=== PATIENT | female | born 1990 | race Caucasian/White ===

== ENCOUNTER 2022-07-19 10:52 | Emergency (ER) | payer BC, SELFPAY ==
[2022-07-19 11:35] VITALS: BP 133/88; PULSE 92; RESP 18; TEMP 36.9; O2SAT 100
--- NOTE | 2022-07-19 12:24 | ED.URI ---
HPI - URI/Sore Throat General Chief Complaint: Upper Respiratory Infection Stated Complaint: Cough Time Seen by Provider: 07/19/22 12:24 Source: patient Mode of arrival: ambulatory Limitations: no limitations History of Present Illness HPI Narrative: 32-year-old female presents with complaint of cough for approximately 3 weeks. Denies shortness of breath. reports some chest tightness and pain when coughing. No history of asthma. Afebrile. States that she has posterior neck pain due to coughing. States [id number] cough medications are not helping. All systems reviewed and negative except as noted above. Related Data Allergies Allergy/AdvReac Type Severity Reaction Status Date / Time No Known Allergies Allergy Verified 07/19/22 11:42 Review of Systems Review of Systems: CONSTITUTIONAL: Denies fever, chills, or sweats. EYES: Denies visual changes, redness, or discharge. ENT: Denies rhinorrhea, congestion, sore throat, or otalgia. CARDIOVASCULAR: Denies chest pain, palpitations, or edema. RESPIRATORY: Reports cough. Denies dyspnea. GASTROINTESTINAL: Denies abdominal pain, nausea, vomiting, or diarrhea. GENITOURINARY: Denies dysuria or hematuria. SKIN: Denies rash or itching. MUSCULOSKELETAL: Denies back pain, joint pain, or myalgia. reports posterior neck pain. NEUROLOGIC: Denies headache, numbness, or weakness. PSYCHIATRIC: Denies anxiety or depression. All other systems reviewed are negative, except as documented in HPI. PMFSH Comments At time of signature, agree with nursing past medical, surgical, social and family history. There is no relevant family history pertinent to the presenting complaint. Exam Narrative: GENERAL: This is a well-nourished, well-developed patient, in no apparent distress. HEAD: normocephalic, atraumatic. EYES: PERRL. Sclera clear/white. Vision is grossly intact. EARS: External ears normal, auditory canals clear and without drainage, TMs normal without perforation. Hearing grossly intact. NOSE: External nose normal with no obvious nasal discharge, nares without redness, no rhinorrhea. THROAT: Mucous membranes moist, posterior pharynx clear. NECK: Neck supple, without lymphadenopathy, masses or thyromegaly. Posterior neck tenderness at trapezius muscles. Full range of motion. CARDIOVASCULAR: Regular rate and rhythm without murmurs, gallops, or rubs. RESPIRATORY: Clear to auscultation. Breath sounds equal bilaterally. No wheezes, rales, or rhonchi. SKIN: warm, Dry, intact with no suspicious lesions or rash, good texture and turgor. NEURO: awake, alert, and oriented to person, place and time. There were no obvious focal neurologic abnormalities. EXTREMITIES: No joint tenderness, effusion, or edema noted. Course Course Level of Care: Express Care Visit Vital Signs Vital signs: Vital Signs Temperature 36.9 C 07/19/22 11:35 Pulse Rate 92 07/19/22 11:35 Respiratory Rate 18 07/19/22 11:35 Blood Pressure 133/88 07/19/22 11:35 Pulse Oximetry 100 07/19/22 11:35 Oxygen Delivery Room Air 07/19/22 11:35 Temperature 36.9 C 07/19/22 11:35 Pulse Rate 92 07/19/22 11:35 Respiratory Rate 18 07/19/22 11:35 Blood Pressure 133/88 07/19/22 11:35 Pulse Oximetry 100 07/19/22 11:35 Oxygen Delivery Room Air 07/19/22 11:35 Reviewed MDM - URI/Sore Throat MDM Narrative Medical decision making narrative: Patient is aware of diagnosis, understands and agrees to treatment plan. Anticipatory guidance given. Patient agrees to follow-up as directed and is aware of reasons to seek care at the emergency department. Portions of this record may have been created with voice recognition software Discharge Plan Discharge Clinical Impression: Acute bronchitis, Cervical muscle strain Patient Disposition: Home, Self-Care Condition: Stable Instructions: Cervical Strain (ED), Acute Bronchitis (ED) Additional Instructions: Take medications
== END 2022-07-19 12:42 | disposition home or self-care (01) ==
PROVIDERS: Emergency Provider Nurse Practitioner Family; PCP Family Medicine
DX: J20.9 Acute bronchitis, unspecified (principal); S16.1XXA Strain of muscle, fascia and tendon at neck level, initial encounter; X50.9XXA Other and unspecified overexertion or strenuous movements or postures, initial encounter
CPT/HCPCS: 99213; G0463

== ENCOUNTER 2022-08-12 15:50 | Emergency (ER) | payer BC, SELFPAY ==
--- NOTE | ~2022-08-12 | XR_ITS ---
XR chest 2V DATE: 08/12/2022 16:25 INDICATION: Cough since June 2022. Right upper chest wall pain TECHNIQUE: PA and lateral views COMPARISON: None FINDINGS: Normal heart size. No hilar or mediastinal enlargement. No pulmonary infiltrate or consolid ation, pleural effusion or pulmonary vascular congestion or pneumothorax. IMPRESSION: No active cardiopulmonary disease Reviewed, dictated and finalized at location [facility]. [employer]
[2022-08-12 15:58] VITALS: BP 133/86; PULSE 95; RESP 16; TEMP 36.6; O2SAT 100
--- NOTE | 2022-08-12 16:18 | ED.URI ---
HPI - URI/Sore Throat General Chief Complaint: Upper Respiratory Infection Stated Complaint: Cough Time Seen by Provider: 08/12/22 16:10 Source: patient Mode of arrival: ambulatory Limitations: no limitations History of Present Illness HPI Narrative: is a 32-year-old female patient presenting to clinic today with complaints of a cough since June. She reports that she was originally sick in June and was given treatment for bronchitis. States she improved however she became ill again with a viral infection. She was around people who had influenza A. States that she does not have any fever or chills however she does have a cough with some right upper chest pain with a cough. Cough is productive in the morning with some yellow phlegm MD elicited complaint: sore throat and nasal congestion Related Data Allergies Allergy/AdvReac Type Severity Reaction Status Date / Time No Known Allergies Allergy Verified 08/12/22 15:58 Review of Systems Review of Systems: Pertinent positives per HPI. Patient denies any fever, chills, rash, headache, visual changes, dizziness, chest pain, palpitations, nausea, vomiting, diarrhea, constipation, abdominal pain, or any urinary issues. PMFSH Comments At the time of my signature, I reviewed and agree with the nursing past medical, surgical, social, and family history. There is no relevant family history pertinent to the patient complaint. Exam Narrative: General: Well-developed, well nourished, in no apparent distress Head: Normocephalic, atraumatic Eyes: Pupils equally round and reactive to light bilaterally, EOM intact, sclera and conjunctive clear, no discharge, lids normal Ears: TMs intact and clear, ear canals clear, no drainage, grossly hearing normal. Nose: Nares patent, no discharge, no inflammation, no sinus tenderness. Mouth: Oral pharynx without lesions or masses, good dentition, MMM. Neck: Supple, trachea midline, no enlargement of anterior or posterior cervical nodes, no thyroid masses or goiter palpable. Cardio: Regular rate and rhythm, s1 and s2 normal, no murmur appreciated. Resp: Clear to auscultation bilaterally, no rhonchi, rales, wheezing or rubs Course Course Emergency Course: Portions of this record may have been created with voice recognition software. Level of Care: Express Care Visit Vital Signs Vital signs: Vital Signs Temperature 36.6 C 08/12/22 15:58 Pulse Rate 95 08/12/22 15:58 Respiratory Rate 16 08/12/22 15:58 Blood Pressure 133/86 08/12/22 15:58 Pulse Oximetry 100 08/12/22 15:58 Oxygen Delivery Room Air 08/12/22 15:58 Temperature 36.6 C 08/12/22 15:58 Pulse Rate 95 08/12/22 15:58 Respiratory Rate 16 08/12/22 15:58 Blood Pressure 133/86 08/12/22 15:58 Pulse Oximetry 100 08/12/22 15:58 Oxygen Delivery Room Air 08/12/22 15:58 Vital signs reviewed MDM - URI/Sore Throat MDM Narrative Medical decision making narrative: At the time of visit patient is resting comfortably on the exam table. Chest x-ray was performed and was negative for any sign of pneumonia. I suspect the patient has postviral cough with chest wall pain. I will send in prescription for prednisone. Supportive measures were discussed with the patient she voiced understanding of discharge instructions and agrees to treatment plan Differential Diagnosis Differential diagnosis: Likely upper respiratory infection, otitis media, sinusitis, viral infection, bronchitis, influenza, pharyngitis and other ( Costochondritis, pneumonia, pleurisy) Discharge Plan Discharge Clinical Impression: Acute costochondritis, Post-viral cough syndrome Patient Disposition: Home, Self-Care Condition: Stable Instructions: Antibiotic Form, Costochondritis (ED), Acute Cough (ED) Additional Instructions: Chest x-ray was negative for any sign of pneumonia Take prescription medications only as prescribed- prednisone Increase fluids and
== END 2022-08-12 16:42 | disposition home or self-care (01) ==
PROVIDERS: Emergency Provider Nurse Practitioner Family; PCP Family Medicine
DX: M94.0 Chondrocostal junction syndrome [Tietze] (principal); R05.9 Cough, unspecified
CPT/HCPCS: 71046; 99213; G0463

== ENCOUNTER 2023-11-12 12:12 | Emergency (ER) | payer BC, SELFPAY ==
--- NOTE | ~2023-11-12 | XR_ITS ---
EXAMINATION: XR chest 2V DATE: 11/12/2023 12:24 INDICATION: Cough. Right rib pain. TECHNIQUE: Frontal and lateral views of the chest were obtained. COMPARISON: None. FINDINGS: There is no pneumonia, pleural effusion, or pneumothorax. The heart size is normal. There i s mild chronic anterior wedging of a midthoracic vertebral body. IMPRESSION: 1. No acute cardiopulmonary disease. Reviewed, dictated and finalized at location A.
[2023-11-12 12:13] VITALS: BP 140/89; PULSE 91; RESP 18; TEMP 36.4; O2SAT 100
--- NOTE | 2023-11-12 13:38 | ED.URI ---
HPI - URI/Sore Throat General Chief Complaint: Upper Respiratory Infection Stated Complaint: cough for three weeks causing rib pain Time Seen by Provider: 11/12/23 13:37 Source: patient Mode of arrival: ambulatory Limitations: no limitations History of Present Illness HPI Narrative: is a 33-year-old female patient presenting to the ER today with complaints of nonproductive cough x3 weeks causing some right-sided rib pain. She reports she was seen 2 weeks ago and given a steroid and states that that is did not help at that time. She believes she got a Medrol Dosepak at that time. Denies any fever, chills but does feel short of breath at times. Denies any URI symptoms. Related Data Allergies Allergy/AdvReac Type Severity Reaction Status Date / Time No Known Allergies Allergy Verified 08/12/22 15:58 Review of Systems Review of Systems: Pertinent positives per HPI. Patient denies any fever, chills, rash, headache, visual changes, dizziness,chest pain, palpitations, nausea, vomiting, diarrhea, constipation, abdominal pain, or any urinary issues. PMFSH Comments At the time of my signature, I reviewed and agree with the nursing past medical, surgical, social, and family history. There is no relevant family history pertinent to the patient complaint. Exam Narrative: General: Well-developed, well nourished, in no apparent distress Head: Normocephalic, atraumatic Eyes: Pupils equally round and reactive to light bilaterally, EOM intact, sclera and conjunctive clear, no discharge, lids normal Ears: TMs intact and clear, ear canals clear, no drainage, grossly hearing normal. Nose: Nares patent, no discharge, no inflammation, no sinus tenderness. Mouth: Oral pharynx without lesions or masses, good dentition, MMM. Neck: Supple, trachea midline, no enlargement of anterior or posterior cervical nodes, no thyroid masses or goiter palpable. Cardio: Regular rate and rhythm, s1 and s2 normal, no murmur appreciated. Resp: Slightly diminished in the bases otherwise clear, no rhonchi, rales, wheezing or rubs Course Course Emergency Course: Portions of this record may have been created with voice recognition software. Vital Signs Vital signs: Vital Signs Temperature 36.4 C 11/12/23 12:13 Pulse Rate 91 11/12/23 12:13 Respiratory Rate 18 11/12/23 12:13 Blood Pressure 140/89 11/12/23 12:13 Pulse Oximetry 100 11/12/23 12:13 Oxygen Delivery Room Air 11/12/23 12:13 Temperature 36.4 C 11/12/23 12:13 Pulse Rate 91 11/12/23 12:13 Respiratory Rate 18 11/12/23 12:13 Blood Pressure 140/89 11/12/23 12:13 Pulse Oximetry 100 11/12/23 12:13 Oxygen Delivery Room Air 11/12/23 13:31 Vital signs reviewed MDM - URI/Sore Throat MDM Narrative Medical decision making narrative: At the time of visit patient is resting comfortably on the exam table. Patient appears to be nontoxic. Diagnostics: Chest x-rays negative for any acute cardiopulmonary process. Plan: I suspect patient has viral bronchitis. Will send in prescription for albuterol inhaler, prednisone, and Tessalon Perles. Supportive measures were discussed with the patient and they voiced understanding discharge instructions and agrees to treatment plan. Return precautions reviewed Differential Diagnosis Differential diagnosis: Likely upper respiratory infection, otitis media, sinusitis, viral infection, bronchitis, influenza, pharyngitis and other (COVID) Imaging Data Radiologist's impression: ITS Impressions Chest X-Ray 11/12/23 13:38 IMPRESSION: 1. No acute cardiopulmonary disease. Discharge Plan Discharge Clinical Impression: Bronchitis Patient Disposition: Home, Self-Care Condition: Stable Instructions: Antibiotic Form, Acute Bronchitis (ED) Additional Instructions: Take prescription medications only as prescribed-albuterol inhaler, prednisone, and Tessalon Perles Increase fluid
== END 2023-11-12 14:15 | disposition home or self-care (01) ==
LOC: ANHED 14:09
PROVIDERS: Emergency Provider Nurse Practitioner Family
DX: J40 Bronchitis, not specified as acute or chronic (principal)
CPT/HCPCS: 71046; 99283

== ENCOUNTER 2024-06-19 05:56 | Emergency (ER) | payer BC, SELFPAY ==
[2024-06-19] VITALS (20 sets, daily range): BP systolic 124–149; BP diastolic 86–105; PULSE 76–106; RESP 12–23; TEMP 36.4–36.6; O2SAT 96–100
--- NOTE | ~2024-06-19 | XR_ITS ---
Portable chest x-ray Comparison: 11/12/2023 Clinical History: Chest pain Findings: Lungs are clear, without focal consolidation or pleural effusion. Cardiomediastinal silho uette is stable. Bones and soft tissues are unremarkable. Impression: Normal chest. Reviewed, dictated and finalized at [facility]. 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
--- NOTE | 2024-06-19 06:07 | ECG_ITS ---
Test Date: 2024-06-19 06:09:48 Measurements Intervals [place] Rate: 100 P: 35 OH: 134 QRS: 44 QRSD: 85 T: 31 QT: 331 QTc: 427 Interpretive Statements SINUS TACHYCARDIA NONSPECIFIC ST-T WAVE ABNORMALITY- ANT/INF LEADS BORDERLINE ECG No previous ECG available for comparison Electronically Signed On 06-19-2024 06:53:16 [employer]OVIE OPERATOR by Alexis Santos D.O.
[2024-06-19] MEDS: ASPIRIN 81 MG CHEWABLE TABLET 324 MG PO (06:14)
[2024-06-19 06:23] LABS: Basophils Absolute Auto 0.1 K/mm3 (0.0-0.1); Basophils Percent Auto 0.8 % (0.2-1.2); Eosinophils Absolute Auto 0.3 K/mm3 (0-0.3); Eosinophils Percent Auto 4.5 % (0-4.4); Hematocrit 44.5 % (37.0-47.0); Hemoglobin 14.6 g/dL (12.0-15.0); Immature Granulocyte Absolute 0.02 K/mm3 (0.00-0.031); Immature Granulocyte Percent A 0.3 % (0-0.5); Lymphocytes Absolute Auto 1.83 K/mm3 (0.9-3.2); Lymphocytes Percent Auto 28.4 % (18.3-44.2); Mean Corpuscular HGB Conc 32.8 g/dl (32-36); Mean Corpuscular Hemoglobin 27.5 pg (26-34); Monocytes Absolute Auto 0.4 K/mm3 (0.1-0.6); Monocytes Percent Auto 5.6 % (2.6-8.5); Neutrophils Absolute Auto 3.9 K/mm3 (1.3-6.7); Neutrophils Percent Auto 60.4 % (45.5-73.1); Platelet Count Result 314 k/mm3 (150-375); Red Cell Distribution Width 12.9 % (11.5-14.5); White Blood Count 6.5 K/mm3 (4.5-10.0)
[2024-06-19 06:29] LABS: INR 0.9; Prothrombin Time 13.1 Seconds (11.1-14.7)
[2024-06-19 06:30] LABS: Partial Thromboplastin Time 24.1 Seconds (22.3-36.8)
[2024-06-19 06:31] LABS: Alanine Aminotransferase 18 U/L (6-35); Albumin Level 4.5 g/dL (3.5-5.1); Alkaline Phosphatase 84 U/L (38-126); Anion Gap 8 mmol/L (4-12); Aspartate Amino Transferase 26 U/L (14-36); Bilirubin,Total 0.4 mg/dL (0.2-1.3); Blood Urea Nitrogen 11 mg/dL (7-17); Calcium 8.8 mg/dL (8.4-10.2); Carbon Dioxide 29 mmol/L (22-30); Chloride 100 mmol/L (98-107); Estimated CRCL calculation 102 ml/min; Estimated Glomerular Filt Rate > 60; Glucose 155 mg/dL (65-110); Lipase 40 U/L (23-300); Potassium 3.6 mmol/L (3.4-5.0); Sodium 137 mmol/L (137-145)
[2024-06-19 06:41] LABS: Troponin I < 0.012 ng/mL (0.000-0.034)
--- NOTE | 2024-06-19 07:18 | ED.GENADULT ---
HPI - General Adult General Chief complaint: Chest Pain Stated complaint: chest pain Time Seen by Provider: 06/19/24 06:52 History of Present Illness HPI narrative: 33-year-old female presenting to the emergency department for evaluation for left upper quadrant pain. Patient reports she did have a minor cough and cold symptoms over the last few days and then yesterday had some brief left upper quadrant pain that was the momentary and then today had or persistent lower rib left upper quadrant pain is worsened with taking a deep breath. Patient denies any prior history of PE or DVT. Patient is not currently any form of control. Patient has no recent surgeries no falls or injuries. Related Data Allergies Allergy/AdvReac Type Severity Reaction Status Date / Time No Known Allergies Allergy Verified 08/12/22 15:58 Review of Systems Review of Systems: All systems reviewed & are unremarkable except as noted in HPI and below Exam Narrative: APPEARANCE: Well appearing, no pain, no distress, well-nourished. HEAD: normocephalic, atraumatic. EYES: PERRLA/EOMI, conjunctivae clear. NOSE: Normal no drainage EARS:TMS clear with good light reflex. THROAT: Pharynx clear, no exudate. NECK: Supple. No adenopathy, no masses. RESPIRATORY: Airway patent, respirations nonlabored. Clear to auscultation bilaterally, no rales, rhonchi, wheezing. CARDIOVASCULAR: Regular rate and rhythm without murmurs rubs or gallops. ABDOMINAL: Soft, nontender, nondistended, normal bowel sounds MUSCULOSKELETAL: Moves all extremities. Strength/ROM intact, No edema, No calf tenderness. NEURO: Alert. Cranial nerves II through XII intact. Grossly intact SKIN: Warm, dry. Normal Color Course Vital Signs Vital signs: Vital Signs Pulse Rate 106 H 06/19/24 06:03 Respiratory Rate 16 06/19/24 06:03 Pulse Oximetry 96 06/19/24 06:03 Temperature 97.6 F 06/19/24 10:34 Pulse Rate 89 06/19/24 10:34 Respiratory Rate 16 06/19/24 10:34 Blood Pressure 144/93 H 06/19/24 10:34 Pulse Oximetry 100 06/19/24 10:34 Oxygen Delivery Room Air 06/19/24 06:16 Medical Decision Making [facility] Narrative Medical decision making narrative: 33-year-old female presented to the emergency department for evaluation for left-sided chest pain is worsened with deep inspiration. Patient is afebrile with no leukocytosis and hemoglobin of 14.6. Patient's INR is 0.9 and patient does not have an elevated D-dimer. Patient has no acute abnormalities on her CMP and patient had negative serial troponins. Chest x-ray shows no acute cardiopulmonary abnormality and serial EKG showed no evidence of acute STEMI. Patient does report having and upper respiratory infection a few days ago. Patient's symptoms are consistent with pleurisy. Low concern for pulmonary embolism or ACS. Patient was updated on the results of the workup patient was encouraged of close follow-up with her primary care physician for additional outpatient testing. Patient was also advised on medications for pain control. All questions concerns were addressed patient was well-appearing at time of discharge. Differential Diagnosis Differential Diagnosis: Pneumonia, pneumothorax, pulmonary embolism, COVID, RSV, influenza a, pleurisy Vital Signs Vital Signs: Vital Signs Pulse Rate 106 H 06/19/24 06:03 Respiratory Rate 16 06/19/24 06:03 Pulse Oximetry 96 06/19/24 06:03 Temperature 97.6 F 06/19/24 10:34 Pulse Rate 89 06/19/24 10:34 Respiratory Rate 16 06/19/24 10:34 Blood Pressure 144/93 H 06/19/24 10:34 Pulse Oximetry 100 06/19/24 10:34 Oxygen Delivery Room Air 06/19/24 06:16 Lab Data Lab results reviewed: Yes I reviewed the patient's lab results. 06/19/24 06:10 06/19/24 06:10 Labs: Lab Results 06/19/24 06/19/24 Range/Units 06:10 09:23 WBC 6.5 (4.5-10.0) K/mm3 RBC 5.30 (4.2-5.4) M/mm3 Hgb 14.6 (12.0-15.0) g/dL Hct 44.5 (37.0-47.0) % MCV 84.0 (80-100) fl MCH 27.5 (26-34) pg MCHC 32.8 (32-36) g/dl RDW 12.9 (11.5-14.5) % Plt Count 314 (150-375) k/mm3 MPV 10.0 (7.4-10.4) fl Immature Gran % (Auto) 0.3 (0-0.5) % Neut % (Auto) 60.4 (45.5-73.1) % Lymph % (Auto) 28.4 (18.3-44.2) % Karnes % (Auto) 5.6 (2.6-8.5) % Eos % (Auto) 4.5 H (0-4.4) % Baso % (Auto) 0.8 (0.2-1.2) % Lymph # (Auto) 1.83 (0.9-3.2) K/mm3 Karnes # (Auto) 0.4 (0.1-0.6) K/mm3 Eos # (Auto) 0.3 (0-0.3) K/mm3 Baso # (Auto) 0.1 (0.0-0.1) K/mm3 Abs Immat Gran (auto) 0.02 (0.00-0.031) K/mm3 Absolute Neuts (auto) 3.9 (1.3-6.7) K/mm3 Absolute Nucleated RBC 0.000 (0.0-0.012) K/mm3 Nucleated RBC % 0.0 (0.0-0.2) % PT 13.1 (11.1-14.7) Seconds INR 0.9 APTT 24.1 (22.3-36.8) Seconds D-Dimer 0.27 (<0.48) ug/mL Sodium 137 (137-145) mmol/L Potassium 3.6 (3.4-5.0) mmol/L Chloride 100 (98-107) mmol/L Carbon Dioxide 29 (22-30) mmol/L Anion Gap 8 (4-12) mmol/L BUN 11 (7-17) mg/dL Creatinine 0.70 (0.7-1.0) mg/dL Estim Creat Clear Calc 102 ml/min Estimated GFR > 60 (59 - ) Glucose 155 H (65-110) mg/dL Calcium 8.8 (8.4-10.2) mg/dL Total Bilirubin 0.4 (0.2-1.3) mg/dL AST 26 (14-36) U/L ALT 18 (6-35) U/L Alkaline Phosphatase 84 (38-126) U/L Troponin I < 0.012 < 0.012 (0.000-0.034) ng/mL Total Protein 8.0 (6.3-8.2) g/dL Albumin 4.5 (3.5-5.1) g/dL Lipase 40 (23-300) U/L Imaging Data Radiologist's impression: Impressions Chest X-Ray 06/19/24 06:32 Impression: Normal chest. Discharge Plan Discharge Clinical Impression: Chest pain, Chest pain, pleuritic Patient Disposition: Home, Self-Care Condition: Stable Instructions: Antibiotic Form, Chest Pain (ED), Pleurisy (ED) Additional Instructions: Ibuprofen for pain control. Tylenol as needed for additional pain control. Have close follow-up with your primary care physician for additional outpatient cardiac testing. If you have any worsening symptoms then please call or return to the emergency department. Prescriptions: No Action prednisone 20 mg tablet 40 mg PO DAILY 5 Days Qty: 10 0RF prednisone 20 mg tablet 40 mg PO DAILY 5 Days Qty: 10 0RF benzonatate 200 mg capsule 200 mg PO TID 7 Days Qty: 21 0RF albuterol sulfate 90 mcg/actuation HFA aerosol inhaler 2 puff inhalation Q4-6H PRN (Reason: shortness of breath or wheezing) 30 Days Qty: 8.5 0RF Follow-up/Referrals: UNKNOWN,DOCTOR [Primary Care Provider] - Quality HEART score for chest pain patients History: slightly suspicious ECG: normal Age: < or = to 45 years Risk factors: 1 or 2 risk factors Troponin: < or = to 1x normal limit Heart score: 1
[2024-06-19] MEDS: KETOROLAC 15 MG/ML VIAL (*BKC) IV PUSH (07:44)
[2024-06-19] MEDS: SODIUM CHLORIDE 0.9% IV 1,000 ML 999 ML IV CONT (07:44)
[2024-06-19 09:00] LABS: D Dimer 0.27 ug/mL (<0.48)
--- NOTE | 2024-06-19 09:19 | ECG_ITS ---
Test Date: 2024-06-19 09:27:56 Measurements Intervals [place] Rate: 86 P: 45 OH: 135 QRS: 47 QRSD: 84 T: 24 QT: 352 QTc: 421 Interpretive Statements SINUS RHYTHM BASELINE ARTIFACT- I, III, AVR, AVL NORMAL ECG Compared to ECG 06/19/2024 06:09:48 HEART RATE HAS DECREASED Electronically Signed On 06-19-2024 10:21:53 [employer]PRES[employer] by Alexis Santos D.O.
[2024-06-19 10:01] LABS: Troponin I < 0.012 ng/mL (0.000-0.034)
== END 2024-06-19 10:35 | disposition home or self-care (01) ==
PROVIDERS: Student in an Organized Health Care Education/Training Program; Emergency Provider Emergency Medicine
DX: R07.81 Pleurodynia (principal); R00.0 Tachycardia, unspecified; R94.31 Abnormal electrocardiogram [ECG] [EKG]
CPT/HCPCS: 36415; 71045; 80053; 83690; 84484; 85025; 85380; 85610; 85730; 93005; 96361; 96374; 99284; A9270; J1885; J7030

== ENCOUNTER 2025-04-03 16:51 | Emergency (ER) | payer BC, SELFPAY ==
--- NOTE | ~2025-04-03 | XR_ITS ---
EXAMINATION: XR foot LT min 3V DATE: 04/03/2025 17:14 INDICATION: Pain at the left fifth metatarsal TECHNIQUE: Dorsoplantar, two oblique and lateral views of the left foot were obtained. COMPARISON: None. FINDINGS: Alignment is normal. No fracture. Joint spaces are normal. No erosions or periosteal reaction. Small Achilles calcaneal enthesophyte. Soft tissues are unremarkable. IMPRESSION: 1. No acute osseous abnormality. Reviewed, dictated and finalized at location A.
[2025-04-03 16:57] VITALS: BP 140/89; PULSE 97; RESP 16; TEMP 36.9; O2SAT 100
--- NOTE | 2025-04-03 16:59 | ED.LOWEXIN ---
HPI - Extremity Injury (Lower) General Chief Complaint: Extremity Injury, Lower Stated Complaint: Left Foot Pain Time Seen by Provider: 04/03/25 17:00 Source: patient, RN notes reviewed and old records reviewed Mode of arrival: ambulatory Limitations: no limitations History of Present Illness HPI Narrative: 34-year-old female presents to the [facility] with complaints of left lateral foot pain, mid lateral foot without bruising or swelling. States that she did a workout boot camp on Wednesday, started with the pain Wednesday night. Had been applying ice, taking Tylenol Related Data Home Medications ?Medication ?Instructions ?Recorded ?Confirmed ?Last Taken ?Type No Home Medications 04/03/25 04/03/25 Unknown History Allergies Allergy/AdvReac Type Severity Reaction Status Date / Time No Known Allergies Allergy Verified 04/03/25 16:54 Review of Systems Review of Systems: All systems reviewed & are unremarkable except as noted in HPI and below Constitutional: Constitutional: Reports no additional constitutional complaints ENT: Reports system reviewed and no additional complaints, except as documented Musculoskeletal: Musculoskeletal: Reports as per HPI Integumentary/Breasts: Skin/Breast: Reports system reviewed and no additional complaints, except as docu PMFSH Comments At the time of my signature, I reviewed and agree with the nursing past medical, surgical, social, and family history. There is no relevant family history pertinent to the patient complaint. Exam Const: General: cooperative, healthy appearing, comfortable, no acute distress, well developed, alert and well nourished Nutritional Appearance: well nourished Orientation/consciousness: patient oriented x3 Limitations: no limitations HENMT: Head: normal to inspection Eyes: General: appearance normal, both eyes and all related structures Alignment and Position: alignment normal Neck: Neck: normal visual inspection, full ROM, no lymphadenopathy and no meningeal signs Chest: Chest palpation & inspection: normal inspection of the chest Resp: Effort & Inspection: normal respiratory effort and able to speak in complete sentences Cardio: Rate: regular rate Skin: General skin exam: normal color and no rashes or lesions noted Neuro: General: patient oriented x3, gait normal, moves all extremities and no meningeal signs Cognition (Neuro): normal cognition Speech: normal speech Gait exam (Neuro): Normal gait present Extrem: General: normal to inspection, full ROM, capillary refill normal and normal gait Left lower extremity: foot Details: normal capillary refill, tenderness Location: of the lateral foot Location: in the mid-section, toes with normal ROM, no edema, vascular exam Details: dorsalis pedis pulse present and normal capillary refill and motor-sensory exam light-touch normal; no unusual warmth, no abrasions, no lacerations, no ecchymosis, no crepitus and no foreign bodies Psych: Appearance: grossly normal and well kempt Mental Status: mental status grossly normal Speech and movement: Normal speech and movement present and Clear speech present Affect: normal affect Attitude: cooperative Course Course Level of Care: Express Care Visit Vital Signs Vital signs: Vital Signs Temperature 98.4 F 04/03/25 16:57 Pulse Rate 97 04/03/25 16:57 Respiratory Rate 16 04/03/25 16:57 Blood Pressure 140/89 04/03/25 16:57 Pulse Oximetry 100 04/03/25 16:57 Oxygen Delivery Room Air 04/03/25 16:57 Temperature 98.4 F 04/03/25 16:57 Pulse Rate 97 04/03/25 16:57 Respiratory Rate 16 04/03/25 16:57 Blood Pressure 140/89 04/03/25 16:57 Pulse Oximetry 100 04/03/25 16:57 Oxygen Delivery Room Air 04/03/25 16:57 Reviewed MDM - Extremity Injury (Lower) MDM Narrative Medical decision making narrative: Patient sitting in exam room. Patient is nontoxic, vitals stable. Patient presents with 2 day history of lateral mid foot pain left. X-ray negative Patient with no bruising or swelling noted. Tenderness is noted Patient appropriate for outpatient treatment with Close follow-up Discharge instructions reviewed with patient, as well as provided in writing per nursing staff. The instructions also include specific and strict return/GO TO THE ER as well as f/u information. All questions have been answered, and the patient deny any further questions with discharge and discharge plan. Some parts of this dictation were generated by voice recognition software and may contain typographical and/or grammatical inaccuracies. Differential Diagnosis Differential diagnosis: Likely other (Foot contusion, foot fracture, foot sprain) Imaging Data Radiologist's impression: EXAMINATION: XR foot LT min 3V DATE: 04/03/2025 17:14 INDICATION: Pain at the left fifth metatarsal TECHNIQUE: Dorsoplantar, two oblique and lateral views of the left foot were obtained. COMPARISON: None. FINDINGS: Alignment is normal. No fracture. Joint spaces are normal. No erosions or periosteal reaction. Small Achilles calcaneal enthesophyte. Soft tissues are unremarkable. IMPRESSION: 1. No acute osseous abnormality. Critical Care Time Critical Care Time Critical Care Time: No Discharge Plan Discharge Clinical Impression: Acute pain of left foot Patient Disposition: Home Condition: Stable Instructions: Antibiotic Form, Foot Sprain (ED) Additional Instructions: Your Xray did not show a fracture. Wear good supportive shoes at all times. Ice should be applied to help reduce swelling. It can be used for 20 to 30 minutes, every 2-3 hours while awake. Do not apply ice directly to your skin. ankle braces or lexa-wraps will help support your injured ankle. You can alternate ibuprofen 600mg and Tylenol 650mg every 4 hours as needed for pain Please schedule a follow-up visit with your personal physician for further evaluation and treatment within 2 weeks especially if symptoms persist. For new or worsening symptoms go directly to the emergency room Patient Language: Pashto Prescriptions: No Action No Home Medications Follow-up/Referrals: PHYSICIAN,[employer] MACHINE [employer]TER [Primary Care Provider, Internal Medicine] Stand Alone Forms: Work/School Release IP Time of Disposition: 17:24
== END 2025-04-03 17:30 | disposition home or self-care (01) ==
PROVIDERS: Emergency Provider Nurse Practitioner
DX: M79.672 Pain in left foot (principal)
CPT/HCPCS: 73630; 99213; G0463